=== PATIENT | male | born 1950 | race Caucasian/White ===

== ENCOUNTER → 2016-07-28 | Outpatient (CLI) | payer MEDICAID ==
--- NOTE | 2016-07-28 08:40 | US ---
EXAMINATION TYPE: US abdomen complete DATE OF EXAM: 07/28/2016 8:02 AM COMPARISON: NONE CLINICAL HISTORY: Diarrhea. EXAM MEASUREMENTS: Liver Length: 15.7 cm Gallbladder Wall: 0.1 cm CBD: 0.3 c Spleen: 10.2 cm Right Kidney: 11.1 x 5.9 x 5.6 cm Left Kidney: 11.9 x 4.9 x 5.4 cm ANATOMY: TECHNOLOGIST IMPRESSION: Pancreas: completely Obscured by bowel gas Liver: Within normal limits Gallbladder: Within normal limits Evidence for sonographic Javed's sign: CBD: Within normal limits Spleen: Obscured by overlying bowel gas, no obvious pathology Right Kidney: Cyst inferior pole = 2.0 x 2.2 x 1.5 cm Left Kidney: Cysts, upper pole = 1.8 x 1.9 x 1.2 cm, lower pole = 1.4 x 1.7 x 1.2 cm Upper IVC: Within normal limits Abd Aorta: Within normal limits The liver is homogenous. The intrahepatic portion of the IVC and proximal abdominal aorta are within normal limits. There is no evidence of cholelithiasis. Common bile duct is unremarkable. The visu alized portions of the pancreas are homogenous. The spleen is unremarkable. Kidneys are symmetric a nd free of hydronephrosis. Bilateral simple appearing renal cysts are noted. IMPRESSION: Bilateral simple appearing renal cysts are noted.
== END | disposition home or self-care (01) ==
LOC: RADUSWWP 07:31
PROVIDERS: ATTEND Internal Medicine
DX: N28.1 Cyst of kidney, acquired (principal)
CPT/HCPCS: 76700

== ENCOUNTER 2020-08-07 09:10 | Inpatient (IN) | payer MEDICARE ==
[2020-08-07] MEDS ORDERED: HEPARIN SODIUM,PORCINE 5,000 UNIT/ML 1 ML VIAL IV STA (09:17)
[2020-08-07] MEDS ORDERED: NITROGLYCERIN SL TABS 0.4 MG TAB SUBLINGUAL STA (09:17)
[2020-08-07] MEDS ORDERED: LIDOCAINE 1% INJ 10MG/ML (20 ML MDV) ONE (09:24)
--- NOTE | 2020-08-07 09:29 | ED ---
General Adult HPI - General Chief complaint: Chest Pain Stated complaint: stemi Time Seen by Provider: 08/07/20 09:10 Source: patient, EMS, RN notes reviewed, old records reviewed Mode of arrival: EMS Limitations: no limitations - History of Present Illness Initial comments: This is a 70-year-old male who presents emergency Department complaining of [address] pain or shortness of breath per patient states she was shoveling when this began approximately 30 minutes prior to arrival. Patient states he has had a heart attack in the past has had bypass surgery 10 years ago. Patient states he is no diabetes but he does smoke. Patient states he does have high blood pressure. Patient denies any recent fever chills or cough. Patient denies abdominal pain patient denies nausea vomiting diarrhea. Patient states her nitroglycerin in the ambulance it did not help. Patient states she took a 325 aspirin at home. EKG was transmitted to us in route we called a STEMI overhead prior to the patient's arrival. - Related Data Home Medications Medication Instructions Recorded Confirmed Aspirin [Adult Low Dose Aspirin EC] 81 mg PO 05/27/16 05/27/16 Hydrochlorothiazide 12.5 mg PO 05/27/16 [hydroCHLOROthiazide] Sertraline [Zoloft] 100 mg PO DAILY 05/27/16 05/27/16 Allergies Allergy/AdvReac Type Severity Reaction Status Date / Time rosuvastatin [From Crestor] AdvReac Unknown Verified 05/27/16 04:20 Review of Systems ROS Statement: Those systems with pertinent positive or pertinent negative responses have been documented in the HPI. ROS Other: All systems not noted in ROS Statement are negative. Past Medical History Past Medical History: Hyperlipidemia, Hypertension History of Any Multi-Drug Resistant Organisms: None Reported Past Surgical History: Coronary Bypass/CABG Past Psychological History: No Psychological Hx Reported Smoking Status: Smoker, current status unknown Past Alcohol Use History: None Reported Past Drug Use History: None Reported General Exam - General Exam Comments Initial Comments: GENERAL: Patient is well-developed and well-nourished. Patient is nontoxic and well- hydrated and is in mild distress. ENT: Neck is soft and supple. No significant lymphadenopathy is noted. Oropharynx is clear. Moist mucous membranes. Neck has full range of motion without eliciting any pain. EYES: The sclera were anicteric and conjunctiva were pink and moist. Extraocular movements were intact and pupils were equal round and reactive to light. Eyelids were unremarkable. PULMONARY: Unlabored respirations. Good breath sounds bilaterally. Patient has some expiratory wheezing. CARDIOVASCULAR: There is a regular rate and rhythm without any murmurs gallops or rubs. ABDOMEN: Soft and nontender with normal bowel sounds. SKIN: Skin is clear with no lesions or rashes and otherwise unremarkable. NEUROLOGIC: Patient is alert and oriented x3. Cranial nerves II through XII are grossly intact. Motor and sensory are also intact. Normal speech, volume and content. Symmetrical smile. MUSCULOSKELETAL: Normal extremities with adequate strength and full range of motion. LYMPHATICS: No significant lymphadenopathy is noted PSYCHIATRIC: Normal psychiatric evaluation. Limitations: no limitations Course Vital Signs 08/07/20 09:14 Temperature 97.2 F L Pulse Rate 70 Respiratory 18 Rate Blood Pressure 141/83 O2 Sat by Pulse 95 Oximetry Medical Decision Making - Medical Decision Making EKG shows sinus rhythm at 75 bpm ID interval is 218 QRS is 140 Q-T intervals 442 QTC is 493. Patient's EKG shows ST segment elevation in leads 1-3 and aVF as well as precordial leads V5 and V6. Patient also has significant ST segment depression in the cortical leads V1 and V2 and V3. Patient was given another nitroglycerin the emergency department was also given a bolus of heparin 4000 units. A portable chest x-ray was done and it showed no acute abnormalities. Patient was taken to the [facility]. Disposition Clinical Impression: ST elevation myocardial infarction (STEMI) Disposition: ADMITTED IP TO THIS HOSP Time of Disposition: 09:29
[2020-08-07] MEDS ORDERED: MIDAZOLAM 2 MG/2 ML VIAL IV ONE (09:30)
[2020-08-07] MEDS ORDERED: HEPARIN SODIUM 1,000 UN/ML (10ML VL) ONE (09:33)
[2020-08-07] MEDS ORDERED: LIDOCAINE 1% INJ 10MG/ML (20 ML MDV) SQ ONE (09:33)
--- NOTE | 2020-08-07 09:36 | XR ---
EXAMINATION TYPE: XR chest 1V portable DATE OF EXAM: 08/07/2020 COMPARISON: Chest x-ray dated 05/01/2020 HISTORY: COPD TECHNIQUE: Single frontal view of the chest is obtained. FINDINGS: Patient is rotated and post median sternotomy. There is no focal air space opacity, pleural effusion, or pneumothorax seen. Some minimal strand-like densities are present in left mid lung. The cardiac silhouette size is within normal limits. The osseous structures are intact. IMPRESSION: There may be some atelectasis or scarring. Postop changes.
[2020-08-07] MEDS ORDERED: IV FLUID CONTINUATION 1,000 ML IV ONE (09:40)
[2020-08-07] MEDS ORDERED: TIROFIBAN BOLUS 12.5MG/250 ML BAG IV ONE (09:46)
[2020-08-07] MEDS ORDERED: TIROFIBAN 12.5MG-250ML NS 250 ML IV ONE (09:47)
[2020-08-07 09:51] LABS: Basophils # (A) 0.2 k/uL (0-0.2); Basophils % (A) 2 %; Eosinophils # (A) 0.3 k/uL (0-0.7); Eosinophils % (A) 3 %; HCT 50.2 % (39.0-53.0); HGB 16.5 gm/dL (13.0-17.5); Lymphocytes # (A) 2.3 k/uL (1.0-4.8); Lymphocytes % (A) 22 %; MCH 32.4 pg (25.0-35.0); MCHC 32.9 g/dL (31.0-37.0); MCV 98.6 fL (80.0-100.0); Mean Platelet Volume 7.1; Monocytes # (A) 0.5 k/uL (0-1.0); Monocytes % (A) 5 %; Neutrophils % (A) 68 %; Platelet Count 375 k/uL (150-450); RBC 5.09 m/uL (4.30-5.90); RDW 13.2 % (11.5-15.5); WBC 10.3 k/uL (3.8-10.6)
[2020-08-07] MEDS ORDERED: HYDROmorphone 0.5 MG/0.5 ML SYRINGE IVP ONE (09:54)
[2020-08-07] MEDS ORDERED: NOREPINEPHRINE 4 MG in SODIUM CHLORIDE 0.9% 250 ML IV ONE (09:57)
[2020-08-07] MEDS ORDERED: IOPAMIDOL-370 100ML BTL INJ ONE ×2 (10:00→10:16)
[2020-08-07] MEDS ORDERED: PHENYLEPHRINE 10 MG/ML VIAL IV ONE ×3 (10:03)
[2020-08-07] MEDS ORDERED: METOPROLOL TARTRATE 5 MG/5 ML VIAL IVP ONE ×2 (10:06)
[2020-08-07 10:21] LABS: Calcium 8.8 mg/dL (8.4-10.2); Magnesium 1.5 mg/dL (1.6-2.3); Potassium 3.6 mmol/L (3.5-5.1)
[2020-08-07] MEDS ORDERED: CLOPIDOGREL 75 MG TAB ONE (10:27)
[2020-08-07] MEDS ORDERED: CLOPIDOGREL 75 MG TAB PO ONE (10:29)
[2020-08-07] MEDS ORDERED: ALBUTEROL NEBULIZED 2.5 MG/3 ML INHALATION STA (10:32)
[2020-08-07 10:55] LABS: Glucose,Whole Blood 105 mg/dL (75-99)
[2020-08-07] MEDS: IPRATROPIUM-ALBUTEROL 3 ML NEB INHALATION SCH ×3 (11:22→19:58)
[2020-08-07] MEDS ORDERED: ONDANSETRON 4 MG/2 ML VIAL IVP PRN (11:23)
[2020-08-07] MEDS ORDERED: TIROFIBAN 12.5MG-250ML NS 250 ML IV SCH (11:30)
[2020-08-07] MEDS ORDERED: MAGNESIUM SULFATE-D5W PMX 1 GM in DEXTROSE/WATER 1 100ML.BAG IVPB ONE (12:00)
[2020-08-07] MEDS: NOREPINEPHRINE 4 MG in SODIUM CHLORIDE 0.9% 250 ML IV SCH (12:37)
--- NOTE | 2020-08-07 12:40 | CC ---
CARDIAC CATHETERIZATION REPORT CARDIAC CATHETERIZATION AND PTCA REPORT: DATE OF SERVICE: 08/07/2020. PROCEDURE: 1. Left heart catheterization and coronary angiography. 2. Selective coronary angiography of the vein graft to the diagonal. 3. Left internal mammary artery injection to check the graft to LAD. 4. PTCA and stenting of proximal circumflex, which was a total occlusion with a drug- eluting stent with excellent result. This was an ST-elevation LA with reperfusion accomplished in 27 minutes. PERFORMED BY: Dr. Chrissy Vizcaino. Moderate conscious sedation time was 43 minutes. CLINICAL INFORMATION: Morris Ribera is a 70-year-old gentleman who smokes 2 packs a day, has hypertension, CAD, underwent multiple stenting of LAD in the past and eventually in April,, he had 2-vessel bypass with HARMON to LAD and vein graft to the first diagonal. Prior to that, Dr. Nona Vizcaino performed multiple stents of his LAD, which were totally occluded eventually. He had no disease in the dominant RCA or circumflex at that time. He presented to the hospital with chest pain, inferior apical lateral ST elevation suggestive of LA. He was seen by me in the supervisor laboratory and was evaluated by nurse practitioner, Jovanna Dahl. I proceeded with the immediate coronary angiography. The patient was advised cardiac cath and PCI in view of his acute LA. Risks, benefits, options were explained. PROCEDURE NOTE: Under local anesthesia and strict aseptic precautions, a 6-Kyrgyz sheath was placed in the right femoral artery. I started out with a right Juanis guide catheter and noted that his RCA was patent with about a 30% to 40% narrowing and it was a dominant vessel. I then switched over to a left standard Juanis guide catheter of 6-Kyrgyz caliber and noted circumflex was totally occluded. I performed PCI of circumflex immediately and then did a selective injection of the HARMON graft as well as a vein graft to the diagonal. For the HARMON, I used a Maria E catheter. For the vein graft to the diagonal I used the AR1 catheter. I checked LV pressures with the right catheter but did not do an LV gram. The sheath was sutured and patient was sent to the room in stable condition. CARDIAC CATHETERIZATION FINDINGS: The left ventricular end-diastolic pressure was 22 mmHg without any gradient across the aortic valve. CORONARY ANGIOGRAPHY FINDINGS: RIGHT CORONARY ARTERY: Dominant vessel, has a 30% to 40% narrowing distally bifurcates into PDA and PLV, both of which supply a fair amount of myocardium. LEFT MAIN CORONARY ARTERY: Short patent vessel free of significant disease. Bifurcates into LAD and circumflex. LEFT ANTERIOR DESCENDING CORONARY ARTERY: This vessel is totally occluded with a limited view of a diagonal branch. LEFT POSTERIOR CIRCUMFLEX CORONARY ARTERY: This vessel is totally occluded in the proximal portion, seen as a stump and this is the culprit vessel. LEFT INTERNAL MAMMARY ARTERY GRAFT TO LAD: This was performed after the intervention procedure. The HARMON is widely patent with good flow and the opacified LAD has minor diffuse irregularities, runs all the way to the apex. It also goes back and supplies a diagonal branch as well. SAPHENOUS VEIN GRAFT TO THE DIAGONAL BRANCH: This graft is widely patent at the origin and body and insertion site and the opacified diagonal is small in caliber, has mild diffuse disease but good flow. No significant disease in the vein graft to the diagonal. LEFT VENTRICULOGRAM: Left ventriculogram was not performed. FINAL IMPRESSION: This patient has a right dominant system, 30% to 40% RCA disease. Left main is patent. LAD is occluded. The circumflex is totally occluded in the proximal portion, is the culprit vessel. The vein graft to the diagonal and HARMON to LAD are widely patent. The end-diastolic pressure is elevated without any gradient across aortic valve. The left ventricular end-diastolic pressure was 22 mmHg. RECOMMENDATIONS: I recommended PCI of the circumflex and that was performed expeditiously. PCI PROCEDURE DETAILS: I used a standard left Juanis guide catheter to cannulate the left coronary artery and a run-through wire to cross the lesion and a 3.0 trek balloon to dilate the lesion. Reperfusion was accomplished in 27 minutes. I then deployed a 3.5 caliber 15 mm long Xience stent. This was deployed at 12 atmospheres. Excellent angiographic result was achieved. Patient received a total of 9000 heparin and his ACT was 258. He also received Aggrastat bolus and infusion as per protocol and he also received 600 mg of Plavix orally. Excellent angiographic result without complication was achieved. Results were discussed with the patient as well as his sister and he was sent to the ICU with the sheath sutured in with the understanding it will be pulled at 1 p.m. and FemoStop will be applied. MMODL / IJN: [id number] /
[2020-08-07] MEDS: SODIUM CHLORIDE 0.9% 1,000 ML IV SCH (12:42)
[2020-08-07] MEDS ORDERED: amLODIPine 5 MG TAB PO STA (12:55)
[2020-08-07] MEDS: NITROGLYCERIN SL TABS 0.4 MG TAB SUBLINGUAL SCH ×2 (13:02→13:07)
[2020-08-07] MEDS: POTASSIUM CHLORIDE ER 20 MEQ TAB.ER PO SCH ×2 (13:07→15:35)
--- NOTE | 2020-08-07 13:30 | P.HPIM ---
History of Present Illness H&P Date: 08/07/20 Chief Complaint: chest pain 70-year-old man with a medical history of hypertension, hyperlipidemia, CAD status post CABG presented with chest pain. Patient shoveling snow when he started to experience some chest pain with left arm tingling, and called EMS. He was brought in by ambulance with EKG noting STEMI. He was taken to the [facility] and had left circumflex revascularization with a drug-eluting stent. Otherwise his HARMON to LAD and SVG to RCA were both patent. RCA had 30-40% stenosis. Patient says this chest pain significantly improved, denies fevers, chills, nausea, vomiting, palpitations, abdominal pain, dysuria, dyschezia, numbness/weakness of extremities. Review of Systems All Systems reviewed and pertinent positives and negatives noted in HPI, all other symptoms are negative Past Medical History Past Medical History: Hyperlipidemia, Hypertension History of Any Multi-Drug Resistant Organisms: None Reported Past Surgical History: Coronary Bypass/CABG Date of Last Stent Placement:: 08/07/2020 Past Psychological History: No Psychological Hx Reported Smoking Status: Smoker, current status unknown Past Alcohol Use History: None Reported Past Drug Use History: None Reported - Past Family History Father Family Medical History: Diabetes Mellitus Medications and Allergies Home Medications Medication Instructions Recorded Confirmed Type Acetaminophen [Tylenol] 325 mg PO DAILY 08/07/20 08/07/20 History Aspirin 325 mg PO ONCE PRN 08/07/20 08/07/20 History Cetirizine HCl [Zyrtec] 10 mg PO DAILY 08/07/20 08/07/20 History Fluticasone Propion/Salmeterol 1 puff INHALATION RT-BID 08/07/20 08/07/20 History [Fluticasone-Salmeterol 250-50] Nitroglycerin Sl Tabs [Nitrostat] 0.4 mg SL Q5M PRN 08/07/20 08/07/20 History Allergies Allergy/AdvReac Type Severity Reaction Status Date / Time rosuvastatin [From Crestor] AdvReac Muscle pain Verified 08/07/20 11:09 Physical Exam Osteopathic Statement: *. No significant issues noted on an osteopathic structural exam other than those noted in the History and Physical/Consult. Vitals: Vital Signs Temp Pulse Resp BP Pulse Ox 08/07/20 13:10 99 22 176/101 90 L 08/07/20 13:00 95 14 95 08/07/20 12:50 92 12 94 L 08/07/20 12:40 93 14 96 08/07/20 12:30 87 14 176/101 96 08/07/20 12:20 87 16 108/61 96 08/07/20 12:10 92 18 95 08/07/20 12:00 77 11 L 96 08/07/20 11:50 92 19 95 08/07/20 11:40 84 13 96 08/07/20 11:34 88 08/07/20 11:30 65 9 L 98 08/07/20 11:25 84 08/07/20 11:20 75 11 L 96 08/07/20 11:10 74 18 94 L 08/07/20 11:00 98.3 F 79 22 94 L 08/07/20 10:50 65 20 108/61 95 08/07/20 10:46 21 94 L 08/07/20 09:23 97.2 F L 68 18 111/63 95 08/07/20 09:22 68 18 111/63 95 08/07/20 09:14 97.2 F L 70 18 141/83 95 Intake and Output 08/06/20 08/07/20 08/07/20 22:59 06:59 14:59 Intake Total 1232 Output Total 200 Balance 1032 Intake: IV 1107 Magnesium Sulfate-D5w Pmx 100 1 gm In Dextrose/Water 1 100ml.bag @ 100 mls/hr IVPB ONCE ONE Rx#: [id number] Sodium Chloride 0.9% 1, 300 000 ml @ 75 mls/hr IV . [id number] Rx#:[id number] Intake, IV Titration 0 Amount Norepinephrine 4 mg In 0 Sodium Chloride 0.9% 250 ml @ 0.05 MCG/KG/MIN 15. 986 mls/hr IV .[id number] [facility] Rx#:[id number] Oral 125 Output: Urine 200 Other: # Voids 0 Weight 83.915 kg ABP, PAP, CO, CI - Last 8 Hours Arterial Blood Pressure 172/79 Arterial Blood Pressure 184/77 Arterial Blood Pressure 190/78 Arterial Blood Pressure 194/84 Arterial Blood Pressure 185/74 Arterial Blood Pressure 180/73 Arterial Blood Pressure 191/79 Arterial Blood Pressure 169/69 Arterial Blood Pressure 181/77 Arterial Blood Pressure 177/72 Arterial Blood Pressure 159/69 Arterial Blood Pressure 158/68 Arterial Blood Pressure 154/67 Arterial Blood Pressure 148/67 Gen: awake, alert HEENT: normocephalic, atraumatic, good hearing acuity, moist mucous membranes Resp: good air exchange, breathing comfortably with no accessory muscle use CVS: good distal perfusion x 4, GI: soft, NTTP, ND : no SPT, no CVAT, vasquez catheter is present MSK: no pitting edema, no clubbing Neuro: non-focal, moving all extremities Psych: cooperative, euthymic mood Results CBC & Chem 7: 08/07/20 09:30 08/07/20 09:30 Labs: Abnormal Lab Results - Last 24 Hours (Table) 08/07/20 08/07/20 Range/Units 09:30 10:54 Chloride 109 H (98-107) mmol/L Carbon Dioxide 16 L (22-30) mmol/L Creatinine 1.37 H (0.66-1.25) mg/dL Glucose 151 H (74-99) mg/dL POC Glucose (mg/dL) 105 H (75-99) mg/dL Magnesium 1.5 L (1.6-2.3) mg/dL Thrombosis Risk Factor Assmnt - Choose All That Apply Each Factor Represents 1 point: Obesity (BMI >25) Each Risk Factor Represents 2 Points: Age 61-74 years Thrombosis Risk Factor Assessment Total Risk Factor Score: 3 Thrombosis Risk Factor Assessment Level: Moderate Risk Assessment and Plan Assessment: 1. STEMI 2. CAD status post CABG and PCI 3. Hypertension, essential 4. Hyperlipidemia 5. Obesity next 70-year-old man with medical history of CAD/HTN/HLD presented with chest pain and was found to have STEMI with successful revascularization of the left circumflex. Plan: - monitor on telemetry - cardiology consult - ASA, statin, plavix - Aggrastat gtt per cardiology - metoprolol BID - losartan qHS - duoneb PRN, albuterol PRN, budesonide BID - nitro PRN for chest pain Full Code
--- NOTE | 2020-08-07 13:36 | P.CRDCN ---
History of Present Illness History of present illness: HISTORY OF PRESENTING ILLNESS This is a pleasant 70-year-old male past medical history significant for very artery disease status post bypass grafting in 2009 with previous PCI to the RCA in 2008, chronic nicotine dependence, COPD, hypertension and dyslipidemia. 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 He was outside shoveling snow this morning when he developed discomfort in the left precordial region. The pain is described as a heavy tight sensation. Was as sociated with feeling lightheaded and short of breath. He did take sublingual nitroglycerin at home however they're over 10 years old. There is no radiation to the arm, back, neck or jaw. On EMS arrival initial EKG obtained revealed sinus mechanism with ST elevation in the inferior lateral leads with T-wave inversions anteriorly with frequent PVCs and underlying right bundle branch block. STEMI alert was sent to the emergency department. On arrival to the emergency department his EKG showed ongoing ST elevation inferior laterally. Chest x-ray revealed some atelectasis with no overt heart failure. Laboratory data reviewed, CBC unremarkable, sodium 137, potassium 3.6, creatinine 1.37, m agnesium 1.5 and initial troponin negative. Current daily cardiac medications include aspirin 325 mg daily as needed for pain. REVIEW OF SYSTEMS At the time of my exam: CONSTITUTIONAL: Denies fever or chills. CARDIOVASCULAR: Complains of chest pain. Denies shortness of breath, orthopnea, PND or palpitations. RESPIRATORY: Denies cough. GASTROINTESTINAL: Denies abdominal pain, diarrhea, constipation, nausea or vomiting. MUSCULOSKELETAL: Denies myalgias. NEUROLOGIC: Denies numbness, tingling, headacbe or weakness. ENDOCRINE: Denies fatigue, weight change, polydipsia or polyurina. GENITOURINARY: Denies burning, hematuria or urgency with micturation. HEMATOLOGIC: Denies history of anemia or bleeding. PHYSICAL EXAMINATION Blood pressure 141/83 heart rate 70 afebrile and maintaining oxygen saturation on nasal cannula. CONSTITUTIONAL: No apparent distress. Ayala pale appearance. HEENT: Head is normocephalic. Pupils are equal, round. Sclerae anicteric. Mucous membranes of the mouth are moist. No JVD. No carotid bruit. CHEST EXAMINATION: Expiratory wheezes. No rales or rhonchi. No chest wall tenderness is noted on palpation or with deep breathing. HEART EXAMINATION: Regular rate and rhythm. S1, S2 heard. No murmurs, gallops or rub. Distant heart sounds. ABDOMEN: Soft, nontender. Positive bowel sounds. EXTREMITIES: 2+ peripheral pulses, no lower extremity edema and no calf tende rness. NEUROLOGIC EXAMINATION: Patient is awake, alert and oriented x3. ASSESSMENT Inferior wall STEMI Coronary artery disease s/p 2V bypass grafting 2009 with HARMON-LAD and SVG-diag Hypertension Dyslipidemia Chronic nicotine dependence COPD PLAN Patient to go directly to the cardiac catheterization lab. Discussed in great detail with the patient as well as his sister, Zulma. I have discussed the risks, benefits and alternative therapies for the above-mentioned procedure and for both sedation/analgesia as well as necessary blood product administration, if indicated, as they pertain to this patient. The patient has indicated understanding and acceptance of the risks and procedures discussed. Further recommendations to follow based upon clinical course. Thank you kindly for this consultation. Nurse Practitioner note has been reviewed, I agree with a documented findings and plan of care. Patient was seen and examined. Past Medical History Past Medical History: Hyperlipidemia, Hypertension History of Any Multi-Drug Resistant Organisms: None Reported Past Surgical History: Coronary Bypass/CABG Past Psychological History: No Psychological Hx Reported Smoking Status: Smoker, current status unknown Past Alcohol Use History: None Reported Past Drug Use History: None Reported - Past Family History Father Family Medical History: Diabetes Mellitus Medications and Allergies Home Medications Medication Instructions Recorded Confirmed Type Acetaminophen [Tylenol] 325 mg PO DAILY 08/07/20 08/07/20 History Aspirin 325 mg PO ONCE PRN 08/07/20 08/07/20 History Cetirizine HCl [Zyrtec] 10 mg PO DAILY 08/07/20 08/07/20 History Fluticasone Propion/Salmeterol 1 puff INHALATION RT-BID 08/07/20 08/07/20 History [Fluticasone-Salmeterol 250-50] Nitroglycerin Sl Tabs [Nitrostat] 0.4 mg SL Q5M PRN 08/07/20 08/07/20 History Allergies Allergy/AdvReac Type Severity Reaction Status Date / Time rosuvastatin [From Crestor] AdvReac Muscle pain Verified 08/07/20 11:09 Physical Exam Vitals: Vital Signs Temp Pulse Resp BP Pulse Ox 08/07/20 09:14 97.2 F L 70 18 141/83 95 Intake and Output 08/06/20 08/07/20 08/07/20 22:59 06:59 14:59 Other: Weight 83.915 kg Results 08/07/20 09:30 08/07/20 09:30 Intake and Output 08/06/20 08/07/20 08/07/20 22:59 06:59 14:59 Other: Weight 83.915 kg Patient Weight 08/08/20 06:59 Weight 83.915 kg
--- NOTE | 2020-08-07 13:49 | P.CNPUL ---
History of Present Illness Consult date: 08/07/20 Requesting physician: Feliz Garrido Reason for consult: COPD, other (ICU management) Chief complaint: Chest pain History of present illness: This is a 70-year-old white male, familiar to my service, known history of severe COPD, [id number] smoking history, hypertension, coronary artery disease and previous CABG/2 vessel bypass surgery with HARMON to LAD and saphenous vein graft to first diagonal. History of hypertension, had multiple stents in the past to his LAD. Patient presented to the hospital with chest pain, classic for angina, associated with diaphoresis, left arm discomfort, and this happened while he was shoveling snow. Upon presentation to the hospital, patient was found to have inferior apical lateral ST segment elevation on EKG, suggestive of acute OH/acute ST elevation myocardial infarction. Patient was transferred to the cardiac catheterization lab, underwent cardiac catheterization and stenting of his proximal circumflex which was totally occluded this was done utilizing a drug eluting stent excellent results. Postoperatively, patient was transferred to the ICU, and I was asked to see him on consultation. During my evaluation, patient had some vague chest discomfort, his chest pain has significantly improved. He had no cough no wheezing no shortness of breath no fever no chills no hemoptysis and no nausea no vomiting, no diaphoresis. Troponin on p resentation was less than 0.012. Electrolytes were basically unremarkable except for creatinine of 1.37. CBC was relatively normal. Chest x-ray showed some bibasilar atelectasis or scarring, no acute process was appreciated on the chest x-ray. Review of Systems Constitutional: Negative. HEENT: Negative. Pulmonary: Negative. Cardiac: As noted in HPI. GI: Negative. Genitourinary: Negative. Musculoskeletal: Negative. Endocrine: Negative. Hematologic: Negative. Psychiatric: Negative. Neurologic: Negative. Skin: Negative. Past Medical History Past Medical History: Hyperlipidemia, Hypertension History of Any Multi-Drug Resistant Organisms: None Reported Past Surgical History: Coronary Bypass/CABG Date of Last Stent Placement:: 08/07/2020 Past Psychological History: No Psychological Hx Reported Smoking Status: Smoker, current status unknown Past Alcohol Use History: None Reported Past Drug Use History: None Reported - Past Family History Father Family Medical History: Diabetes Mellitus Medications and Allergies Home Medications Medication Instructions Recorded Confirmed Type Acetaminophen [Tylenol] 325 mg PO DAILY 08/07/20 08/07/20 History Aspirin 325 mg PO ONCE PRN 08/07/20 08/07/20 History Cetirizine HCl [Zyrtec] 10 mg PO DAILY 08/07/20 08/07/20 History Fluticasone Propion/Salmeterol 1 puff INHALATION RT-BID 08/07/20 08/07/20 History [Fluticasone-Salmeterol 250-50] Nitroglycerin Sl Tabs [Nitrostat] 0.4 mg SL Q5M PRN 08/07/20 08/07/20 History Allergies Allergy/AdvReac Type Severity Reaction Status Date / Time rosuvastatin [From Crestor] AdvReac Muscle pain Verified 08/07/20 11:09 Physical Exam Vitals: Vital Signs Temp Pulse Resp BP Pulse Ox 08/07/20 13:10 99 22 176/101 90 L 08/07/20 13:00 95 14 95 08/07/20 12:50 92 12 94 L 08/07/20 12:40 93 14 96 08/07/20 12:30 87 14 176/101 96 08/07/20 12:20 87 16 108/61 96 08/07/20 12:10 92 18 95 08/07/20 12:00 77 11 L 96 08/07/20 11:50 92 19 95 08/07/20 11:40 84 13 96 08/07/20 11:34 88 08/07/20 11:30 65 9 L 98 08/07/20 11:25 84 08/07/20 11:20 75 11 L 96 08/07/20 11:10 74 18 94 L 08/07/20 11:00 98.3 F 79 22 94 L 08/07/20 10:50 65 20 108/61 95 08/07/20 10:46 21 94 L 08/07/20 09:23 97.2 F L 68 18 111/63 95 08/07/20 09:22 68 18 111/63 95 08/07/20 09:14 97.2 F L 70 18 141/83 95 Intake and Output 08/06/20 08/07/20 08/07/20 22:59 06:59 14:59 Intake Total 1232 Output Total 200 Balance 1032 Intake: IV 1107 Magnesium Sulfate-D5w Pmx 100 1 gm In Dextrose/Water 1 100ml.bag @ 100 mls/hr IVPB ONCE ONE Rx#: [id number] Sodium Chloride 0.9% 1, 300 000 ml @ 75 mls/hr IV . [id number] [facility] Rx#:[id number] Intake, IV Titration 0 Amount Norepinephrine 4 mg In 0 Sodium Chloride 0.9% 250 ml @ 0.05 MCG/KG/MIN 15. 986 mls/hr IV .[id number] [facility] Rx#:[id number] Oral 125 Output: Urine 200 Other: # Voids 0 Weight 83.915 kg ABP, PAP, CO, CI - Last 8 Hours Arterial Blood Pressure 172/79 Arterial Blood Pressure 184/77 Arterial Blood Pressure 190/78 Arterial Blood Pressure 194/84 Arterial Blood Pressure 185/74 Arterial Blood Pressure 180/73 Arterial Blood Pressure 191/79 Arterial Blood Pressure 169/69 Arterial Blood Pressure 181/77 Arterial Blood Pressure 177/72 Arterial Blood Pressure 159/69 Arterial Blood Pressure 158/68 Arterial Blood Pressure 154/67 Arterial Blood Pressure 148/67 Physical Exam: Revealed 70-year-old white male in no distress. Head: Atraumatic, normocephalic. HEENT:[Neck is supple.] [No neck masses.] [No thyromegaly.] [No JVD.] PERRLA, EOMI, nonicteric sclerae. Chest: Symmetrical chest expansion, diminished breath sounds at the bases, no crackles or rhonchi or wheezes. No chest wall tenderness. Cardiac Exam: [Normal S1 and S2, no S3 gallop, no murmur.] Abdomen: [Soft, nontender, no megaly, no rebound, no guarding, normal bowel sounds.] Extremities: [No clubbing, no edema, no cyanosis.] Neurological Exam: [No focal neurologic deficit.] Alert and oriented 3. Psychiatric: Normal mood, affect and normal mental status examination. Skin: No rashes. Musculoskeletal no limitation of range of motion, no deformities. Results - Laboratory Findings CBC and BMP: 08/07/20 09:30 08/07/20 09:30 Abnormal lab findings: Abnormal Labs 08/07/20 08/07/20 09:30 10:54 Chloride 109 H Carbon Dioxide 16 L Creatinine 1.37 H Glucose 151 H POC Glucose (mg/dL) 105 H Magnesium 1.5 L - Diagnostic Findings Chest x-ray: image reviewed (As noted in HPI.) CT scan - chest: image reviewed Assessment and Plan Assessment: Impression: Acute ST elevation myocardial infarction Status post stent placement in proximal circumflex. History of underlying coronary artery disease and previous CABG and PCI. Severe COPD, presently asymptomatic. Benign essential hypertension. Tobacco dependence syndrome. Chronic kidney disease stage III, baseline creatinine in 2016 was1.43, and today it is 1.37, GFR around 50 Recommendation: Continue present supportive care measures. Continue to monitor in the ICU. Continue Plavix. Continue aspirin. Continue beta blockers. Continue statins. Continue bronchodilators. Continue Aggrastat. Nitroglycerin when necessary. We'll continue to follow. Time with Patient: Greater than 30
[2020-08-07] MEDS: LABETALOL 5 MG/ML VIAL MDV IVP SCH ×3 (14:12→21:00)
[2020-08-07] MEDS ORDERED: ATROPINE SULFATE 0.1 MG/ML 10ML SYRINGE ONE (14:51)
[2020-08-07] MEDS: METOPROLOL TARTRATE 12.5 MG TAB PO SCH ×2 (17:27→21:00)
[2020-08-07] MEDS ORDERED: HYDROcodone/APAP 5-325MG 1 EACH TAB PO PRN (17:32)
[2020-08-07] MEDS ORDERED: MORPHINE SULFATE 2 MG/ML SYRINGE IVP STA (18:38)
[2020-08-07] MEDS: BUDESONIDE 0.5 MG/2 ML NEBU INHALATION SCH (19:58)
[2020-08-07] MEDS: LOSARTAN 25 MG TAB PO SCH (20:59)
[2020-08-07] MEDS ORDERED: LOSARTAN 25 MG TAB PO SCH (21:00)
[2020-08-07] MEDS: ATORVASTATIN 80 MG TAB PO SCH (21:00)
[2020-08-08] MEDS: SODIUM CHLORIDE 0.9% 1,000 ML IV SCH ×2 (00:05→14:06)
[2020-08-08] MEDS: IPRATROPIUM-ALBUTEROL 3 ML NEB INHALATION SCH ×6 (00:08→20:49)
[2020-08-08] MEDS: NOREPINEPHRINE 4 MG in SODIUM CHLORIDE 0.9% 250 ML IV SCH ×2 (00:29→17:53)
[2020-08-08] MEDS: LABETALOL 5 MG/ML VIAL MDV IVP SCH ×6 (03:17→21:37)
[2020-08-08 05:33] LABS: Basophils # (A) 0.1 k/uL (0-0.2); Basophils % (A) 1 %; Eosinophils # (A) 0.1 k/uL (0-0.7); Eosinophils % (A) 1 %; HCT 47.9 % (39.0-53.0); Lymphocytes # (A) 1.6 k/uL (1.0-4.8); Lymphocytes % (A) 15 %; MCH 33.3 pg (25.0-35.0); MCHC 33.4 g/dL (31.0-37.0); MCV 99.8 fL (80.0-100.0); Monocytes # (A) 0.6 k/uL (0-1.0); Monocytes % (A) 6 %; Neutrophils # (A) 8.1 k/uL (1.3-7.7); Neutrophils % (A) 76 %; Platelet Count 316 k/uL (150-450); RDW 13.2 % (11.5-15.5); WBC 10.7 k/uL (3.8-10.6)
[2020-08-08 05:51] LABS: Albumin 3.5 g/dL (3.5-5.0); Calcium 8.7 mg/dL (8.4-10.2); Total Bilirubin 0.7 mg/dL (0.2-1.3); Total Protein 6.5 g/dL (6.3-8.2)
[2020-08-08] MEDS ORDERED: SODIUM POLYSTYRENE SULFONATE 15 GM/60 ML BOTTLE PO STA ×2 (07:04→12:41)
[2020-08-08] MEDS: BUDESONIDE 0.5 MG/2 ML NEBU INHALATION SCH ×2 (07:40→20:49)
[2020-08-08] MEDS: METOPROLOL TARTRATE 12.5 MG TAB PO SCH ×3 (07:56→21:39)
[2020-08-08] MEDS: ASPIRIN 81 MG PO SCH (07:56)
[2020-08-08] MEDS: CLOPIDOGREL 75 MG TAB PO SCH (07:57)
[2020-08-08] MEDS: NICOTINE 14MG/24HR PATCH TRANSDERM SCH (08:31)
--- NOTE | 2020-08-08 08:38 | PN ---
PROGRESS NOTE Mr. Ribera is a 70-year-old gentleman who presented with acute inferior OH underwent stenting of a totally occluded circumflex yesterday. His troponin went up to 370, came back down to 250. EKG revealed a sinus mechanism with inferior OH completed. His potassium is 6.0. He is resting comfortably, has no chest pain. Right groin is slightly tender. There is a very small hematoma. Vital signs are stable. S1, S2 heard normally. Blood pressure control is good. There is JVD of 1 cm. No carotid bruit. S1, S2 heard normally, short systolic murmur noted. Lungs reveal diminished air entry. Abdomen is soft. Right groin has a small area of tenderness, very small hematoma. No bruit. Distal pulses palpable but decreased. I am recommending that we give him Kayexalate 30 grams for elevated potassium of 6.0 and repeat potassium at 2 p.m. Check echocardiogram. Increase activity and hopefully move him to telemetry this afternoon. MMODL / IJN: [id number] /
--- NOTE | 2020-08-08 11:39 | P.PN ---
Subjective Progress Note Date: 08/08/20 No new complaints today, working well with PT. Had some pain at the femoral cath site yesterday, which is resolved. Objective - Vital Signs Vital signs: Vital Signs Temp 99.4 F 08/08/20 08:00 Pulse 74 08/08/20 11:27 Resp 28 H 08/08/20 09:00 BP 140/71 08/08/20 09:00 Pulse Ox 93 L 08/08/20 09:00 Intake & Output 08/07/20 08/08/20 08/08/20 18:59 06:59 18:59 Intake Total 1607 900 225 Output Total 560 625 200 Balance 1047 275 25 Weight 83.915 kg 100.9 kg Intake: IV 1482 900 225 Magnesium Sulfate-D5w Pmx 100 1 gm In Dextrose/Water 1 100ml.bag @ 100 mls/hr IVPB ONCE ONE Rx#: [id number] Sodium Chloride 0.9% 1, 675 900 225 000 ml @ 75 mls/hr IV . [id number] [facility] Rx#:[id number] Intake, IV Titration 0 Amount Norepinephrine 4 mg In 0 Sodium Chloride 0.9% 250 ml @ 0.05 MCG/KG/MIN 15. 986 mls/hr IV .[id number] [facility] Rx#:[id number] Oral 125 Output: Urine 560 625 200 Other: Voiding Method Urinal Urinal Urinal # Voids 0 ABP, PAP, CO, CI - Last Documented Arterial Blood Pressure 137/63 - Exam Gen: awake, alert HEENT: normocephalic, atraumatic, good hearing acuity, moist mucous membranes Resp: good air exchange, breathing comfortably with no accessory muscle use CVS: good distal perfusion x 4, GI: soft, NTTP, ND : no SPT, no CVAT, vasquez catheter is present MSK: no pitting edema, no clubbing Neuro: non-focal, moving all extremities Psych: cooperative, euthymic mood - Labs CBC & Chem 7: 08/08/20 05:23 08/08/20 05:23 Labs: Abnormal Lab Results - Last 24 Hours (Table) 08/07/20 08/08/20 08/08/20 Range/Units 17:50 05:23 05:23 WBC 10.7 H (3.8-10.6) k/uL Neutrophils # 8.1 H (1.3-7.7) k/uL Sodium 136 L (137-145) mmol/L Potassium 6.0 H (3.5-5.1) mmol/L Chloride 108 H (98-107) mmol/L BUN 21 H (9-20) mg/dL Creatinine 1.53 H (0.66-1.25) mg/dL Glucose 111 H (74-99) mg/dL AST 742 H (17-59) U/L ALT 93 H (4-49) U/L Troponin I 371.000 H* (0.000-0.034) ng/mL 08/08/20 Range/Units 05:23 WBC (3.8-10.6) k/uL Neutrophils # (1.3-7.7) k/uL Sodium (137-145) mmol/L Potassium (3.5-5.1) mmol/L Chloride (98-107) mmol/L BUN (9-20) mg/dL Creatinine (0.66-1.25) mg/dL Glucose (74-99) mg/dL AST (17-59) U/L ALT (4-49) U/L Troponin I 253.000 H* (0.000-0.034) ng/mL Assessment and Plan Assessment: 1. STEMI 2. CAD status post CABG and PCI 3. Hypertension, essential 4. Hyperlipidemia 5. Obesity next 70-year-old man with medical history of CAD/HTN/HLD presented with chest pain and was found to have STEMI with successful revascularization of the left circumflex. Plan: - monitor on telemetry - cardiology consult - ASA, statin, plavix - Aggrastat gtt per cardiology - metoprolol BID - losartan qHS - duoneb PRN, albuterol PRN, budesonide BID - nitro PRN for chest pain Full Code
--- NOTE | 2020-08-08 12:08 | P.PN ---
Subjective Progress Note Date: 08/08/20 Principal diagnosis: Acute ST elevation myocardial infarction This is a 70-year-old white male, familiar to my service, known history of severe COPD, [id number] smoking history, hypertension, coronary artery disease and previous CABG/2 vessel bypass surgery with HARMON to LAD and saphenous vein graft to first diagonal. History of hypertension, had multiple stents in the past to his LAD. Patient presented to the hospital with chest pain, classic for angina, associated with diaphoresis, left arm discomfort, and this happened while he was shoveling snow. Upon presentation to the hospital, patient was found to have inferior apical lateral ST segment elevation on EKG, suggestive of acute CA/acute ST elevation myocardial infarction. Patient was transferred to the cardiac catheterization lab, underwent cardiac catheterization and stenting of his proximal circumflex which was totally occluded this was done utilizing a drug eluting stent excellent results. Postoperatively, patient was transferred to the ICU, and I was asked to see him on consultation. During my evaluation, patient had some vague chest discomfort, his chest pain has significantly improved. He had no cough no wheezing no shortness of breath no fever no chills no hemoptysis and no nausea no vomiting, no diaphoresis. Troponin on presentation was less than 0.012. Electrolytes were basically unremarkable except for creatinine of 1.37. CBC was relatively normal. Chest x-ray showed some bibasilar atelectasis or scarring, no acute process was appreciated on the chest x-ray. Reevaluated today on 08/08/2020, patient remains in the ICU today, seems to be doing fairly well, no major events overnight, he is on 2 L nasal cannula and his O2 saturations 92%. Denies any chest pain, denies any shortness of breath, patient is status post stenting of his circumflex. His renal status is a bit worse, patient appeared to develop acute on chronic kidney injury most likely related to the contrast media that he received for his cardiac catheterization and stents placement. Potassium is high today at 6.0, and he was already received Kayexalate by cardiology. Repeat potassium will be done in 4 hours, and we'll address accordingly. Considering his elevated potassium will continue to monitor the patient in the ICU at least for the next 24 hours. His BUN is up to 21 and his creatinine is up to 1.53. Troponin is lower today at 253. Objective - Vital Signs Vital signs: Vital Signs Temp 99.4 F 08/08/20 08:00 Pulse 74 08/08/20 11:27 Resp 25 H 08/08/20 11:00 BP 129/63 08/08/20 11:00 Pulse Ox 91 L 08/08/20 11:00 Intake & Output 08/07/20 08/08/20 08/08/20 18:59 06:59 18:59 Intake Total 1607 900 375 Output Total 560 625 200 Balance 1047 275 175 Weight 83.915 kg 100.9 kg Intake: IV 1482 900 375 Magnesium Sulfate-D5w Pmx 100 1 gm In Dextrose/Water 1 100ml.bag @ 100 mls/hr IVPB ONCE ONE Rx#: [id number] Sodium Chloride 0.9% 1, 675 900 375 000 ml @ 75 mls/hr IV . [id number] [facility] Rx#:[id number] Intake, IV Titration 0 Amount Norepinephrine 4 mg In 0 Sodium Chloride 0.9% 250 ml @ 0.05 MCG/KG/MIN 15. 986 mls/hr IV .[id number] [facility] Rx#:[id number] Oral 125 Output: Urine 560 625 200 Other: Voiding Method Urinal Urinal Urinal # Voids 0 ABP, PAP, CO, CI - Last Documented Arterial Blood Pressure 137/63 - Exam Physical Exam: Revealed 70-year-old white male in no distress. On 2 L nasal cannula, O2 saturations 92%. Patient is hemodynamically stable. Head: Atraumatic, normocephalic. HEENT:[Neck is supple.] [No neck masses.] [No thyromegaly.] [No JVD.] PERRLA, EOMI, nonicteric sclerae. Chest: Symmetrical chest expansion, diminished breath sounds at the bases, no crackles or rhonchi or wheezes. No chest wall tenderness. Cardiac Exam: [Normal S1 and S2, no S3 gallop, no murmur.] Abdomen: [Soft, nontender, no megaly, no rebound, no guarding, normal bowel sounds.] Extremities: [No clubbing, no edema, no cyanosis.] Neurological Exam: [No focal neurologic deficit.] Alert and oriented 3. Psychiatric: Normal mood, affect and normal mental status examination. Skin: No rashes. Musculoskeletal no limitation of range of motion, no deformities. - Labs CBC & Chem 7: 08/08/20 05:23 08/08/20 05:23 Labs: Abnormal Lab Results - Last 24 Hours (Table) 08/07/20 08/08/20 08/08/20 Range/Units 17:50 05:23 05:23 WBC 10.7 H (3.8-10.6) k/uL Neutrophils # 8.1 H (1.3-7.7) k/uL Sodium 136 L (137-145) mmol/L Potassium 6.0 H (3.5-5.1) mmol/L Chloride 108 H (98-107) mmol/L BUN 21 H (9-20) mg/dL Creatinine 1.53 H (0.66-1.25) mg/dL Glucose 111 H (74-99) mg/dL AST 742 H (17-59) U/L ALT 93 H (4-49) U/L Troponin I 371.000 H* (0.000-0.034) ng/mL 08/08/20 Range/Units 05:23 WBC (3.8-10.6) k/uL Neutrophils # (1.3-7.7) k/uL Sodium (137-145) mmol/L Potassium (3.5-5.1) mmol/L Chloride (98-107) mmol/L BUN (9-20) mg/dL Creatinine (0.66-1.25) mg/dL Glucose (74-99) mg/dL AST (17-59) U/L ALT (4-49) U/L Troponin I 253.000 H* (0.000-0.034) ng/mL Assessment and Plan Assessment: Impression: Acute ST elevation myocardial infarction Status post stent placement in proximal circumflex. History of underlying coronary artery disease and previous CABG and PCI. Severe COPD, presently asymptomatic. Benign essential hypertension. Tobacco dependence syndrome. Chronic kidney disease stage III, baseline creatinine in 2016 was1.43, and today it is 1.37, GFR around 50 Acute on chronic kidney injury most likely secondary to contrast media. With acute hyperkalemia. Recommendation: Agree with Kayexalate. Repeat serum potassium in 4 hours. Continue present supportive care measures. Continue to monitor in the ICU. Continue Plavix. Continue aspirin. Continue beta blockers. Continue statins. Continue bronchodilators. Nitroglycerin when necessary. We'll continue to follow. While in the ICU Time with Patient: Less than 30
--- NOTE | 2020-08-08 18:40 | ECHOF ---
Referral Reason:rule out tamponade MEASUREMENTS -------- HEIGHT: 172.7 cm WEIGHT: 83.9 kg BP: RVIDd: 2.8 cm (< 3.3) IVSd: 1.5 cm (0.6 - 1.1) LVIDd: 4.4 cm (3.9 - 5.3) LVPWd: 1.4 cm (0.6 - 1.1) IVSs: 1.8 cm LVIDs: 4.3 cm LVPWs: 1.7 cm LA Diam: 4.3 cm (2.7 - 3.8) Ao Diam: 3.0 cm (2.0 - 3.7) AV Cusp: 1.9 cm (1.5 - 2.6) MV EXCURSION: 23.037 mm (> 18.000) MV EF SLOPE: 190 mm/s (70 - 150) EPSS: 0.6 cm MV E Thom: 0.63 m/s MV DecT: 178 ms MV A Thom: 0.56 m/s MV E/A Ratio: 1.12 RAP: 5.00 mmHg RVSP: 11.07 mmHg FINDINGS -------- Sinus rhythm. This was a techncally difficult study with suboptimal views, , Definity utilized for enhancement of i mages. The left ventricular size is normal. There is moderate concentric left ventricular hypertrophy. O verall left ventricular systolic function is moderately impaired with, an EF between 35 - 40 %. Bas al posterior LV wall motion is hypokinetic. Basal inferior LV wall motion is hypokinetic. Mid p osterior LV wall motion is hypokinetic. Mid inferior LV wall motion is hypokinetic. The right ventricle is normal in size. The left atrium is mildly dilated. The right atrial size is normal. Aortic valve is trileaflet and is mildly thickened. The mitral valve was not well visualized. Mild mitral regurgitation is present. Mild tricuspid regurgitation present. Right ventricular systolic pressure is normal at < 35 mmHg. The pulmonic valve was not well visualized. The aortic root size is normal. There is no pericardial effusion. CONCLUSIONS -------- 1. This was a techncally difficult study with suboptimal views, , Definity utilized for enhancement o f images. 2. There is moderate concentric left ventricular hypertrophy. 3. Overall left ventricular systolic function is moderately impaired with, an EF between 35 - 40 %. 4. Basal posterior LV wall motion is hypokinetic. 5. Basal inferior LV wall motion is hypokinetic. 6. Mid posterior LV wall motion is hypokinetic. 7. Mid inferior LV wall motion is hypokinetic. 8. The left atrium is mildly dilated. 9. Aortic valve is trileaflet and is mildly thickened. 10. Mild mitral regurgitation is present. 11. Mild tricuspid regurgitation present. 12. There is no pericardial effusion. NON EMERGENCY SERVICES AMBULANCE DRIVER: Mayra Duncan RDCS
[2020-08-08] MEDS: LOSARTAN 25 MG TAB PO SCH (21:39)
[2020-08-08] MEDS: ATORVASTATIN 80 MG TAB PO SCH (21:39)
[2020-08-09] MEDS: IPRATROPIUM-ALBUTEROL 3 ML NEB INHALATION SCH ×4 (01:35→11:18)
[2020-08-09] MEDS: LABETALOL 5 MG/ML VIAL MDV IVP SCH ×4 (02:17→13:38)
[2020-08-09 04:06] LABS: HCT 42.4 % (39.0-53.0); HGB 14.3 gm/dL (13.0-17.5); MCH 33.3 pg (25.0-35.0); MCHC 33.8 g/dL (31.0-37.0); MCV 98.5 fL (80.0-100.0); Mean Platelet Volume 7.3; Platelet Count 276 k/uL (150-450); RDW 13.2 % (11.5-15.5); WBC 10.3 k/uL (3.8-10.6)
[2020-08-09 04:14] LABS: Calcium 8.3 mg/dL (8.4-10.2); Potassium 4.7 mmol/L (3.5-5.1)
[2020-08-09] MEDS: BUDESONIDE 0.5 MG/2 ML NEBU INHALATION SCH (07:26)
[2020-08-09] MEDS ORDERED: SODIUM CHLORIDE 0.9% 1,000 ML IV SCH (07:30)
--- NOTE | 2020-08-09 08:28 | XR ---
EXAMINATION TYPE: XR chest 1V portable DATE OF EXAM: 08/09/2020 CLINICAL HISTORY: Difficulty breathing and COPD progress study. TECHNIQUE: Single AP portable upright view of the chest is obtained. COMPARISON: Chest x-ray from 2 days earlier and older studies. FINDINGS: There is mild chronic parenchymal changes bilaterally without suspicious new focal air spa ce opacity, pleural effusion, or pneumothorax seen. Mild linear scarring or atelectasis lateral left mid lung redemonstrated. Overlying sternal wires and mediastinal clips are redemonstrated. The cardi ac silhouette size is stable and upper limits of normal. The osseous structures remain intact. IMPRESSION: Chronic parenchymal changes with persistent lateral left mid lung linear scarring and/or atelectasis. No new infiltrate.
[2020-08-09] MEDS ORDERED: FUROSEMIDE 10 MG/ML 2 ML VIAL IV ONE (08:29)
[2020-08-09] MEDS ORDERED: methylPREDNISolone SOD SUCCI 40 MG/ML 1 ML VIAL IV SCH (08:30)
[2020-08-09] MEDS: NOREPINEPHRINE 4 MG in SODIUM CHLORIDE 0.9% 250 ML IV SCH (08:56)
[2020-08-09] MEDS ORDERED: METOPROLOL TARTRATE 25 MG TAB PO SCH (09:00)
[2020-08-09] MEDS ORDERED: LOSARTAN 25 MG TAB PO SCH (09:00)
[2020-08-09] MEDS: NICOTINE 14MG/24HR PATCH TRANSDERM SCH (09:00)
[2020-08-09] MEDS: CLOPIDOGREL 75 MG TAB PO SCH (09:01)
[2020-08-09] MEDS: ASPIRIN 81 MG PO SCH (09:01)
--- NOTE | 2020-08-09 10:14 | PN ---
PROGRESS NOTE This is a 70-year-old gentleman who presented with acute inferior GA underwent stenting of a totally occluded circumflex coronary artery. He is doing well post procedure. His creatinine has gone up somewhat. He has underlying chronic kidney disease. He is resting comfortably without any chest pain, shortness of breath, or palpitations. Vitals are stable. Heart rate is about 86 beats per minute. Blood pressure is about 120/70. There is JVD of 1 cm. No carotid bruit. S1, S2 heard normally, short systolic murmur noted. Lungs reveal bilateral scattered rhonchi. Abdomen is soft, nontender. Lower extremities reveal diminished pulses. Right groin is clean and dry. His laboratory data revealed that potassium is 4.7. Yesterday I had to give him some Kayexalate. I am carefully going to increase the losartan to 25 mg daily and increase the beta jensen Lopressor to 25 mg b.i.d. and hydrate him cautiously. He may benefit from bronchodilators and/or steroids. I will request Dr. Estrada to evaluate him in this regard. We will increase activity and move him to telemetry. Echocardiogram revealed ejection fraction in the 35% to 40% range with evidence inferobasal lateral hypokinesia. There is no significant mitral regurgitation noted. We will continue gradual increase in activity and move him to telemetry. SALINAS / FABIOLAN: [id number] /
--- NOTE | 2020-08-09 11:01 | P.PN ---
Subjective Progress Note Date: 08/09/20 No new complaints. No chest pain, femoral site pain. No palpitations. Echo with low EF and WMA as expected. Objective - Vital Signs Vital signs: Vital Signs Temp 99.5 F 08/09/20 08:00 Pulse 80 08/09/20 09:00 Resp 16 08/09/20 09:00 BP 118/63 08/09/20 09:00 Pulse Ox 92 L 08/09/20 09:00 Intake & Output 08/08/20 08/09/20 08/09/20 18:59 06:59 18:59 Intake Total 450 115 Output Total 600 600 0 Balance -150 -600 115 Weight 99.155 kg Intake: IV 450 115 Sodium Chloride 0.9% 1, 40 000 ml @ 20 mls/hr IV . Q24H [facility] Rx#:[id number] Sodium Chloride 0.9% 1, 450 75 000 ml @ 75 mls/hr IV . [id number] [facility] Rx#:[id number] Output: Urine 600 600 0 Other: Voiding Method Urinal Urinal ABP, PAP, CO, CI - Last Documented Arterial Blood Pressure 137/63 - Exam Gen: awake, alert HEENT: normocephalic, atraumatic, good hearing acuity, moist mucous membranes Resp: good air exchange, breathing comfortably with no accessory muscle use CVS: good distal perfusion x 4, GI: soft, NTTP, ND : no SPT, no CVAT, vasquez catheter not present MSK: no pitting edema, no clubbing Neuro: non-focal, moving all extremities Psych: cooperative, euthymic mood - Labs CBC & Chem 7: 08/09/20 03:52 08/09/20 03:52 Labs: Abnormal Lab Results - Last 24 Hours (Table) 08/08/20 08/09/20 Range/Units 11:34 03:52 Sodium 135 L (137-145) mmol/L Potassium 5.6 H (3.5-5.1) mmol/L BUN 27 H (9-20) mg/dL Creatinine 1.69 H (0.66-1.25) mg/dL Calcium 8.3 L (8.4-10.2) mg/dL Assessment and Plan Assessment: 1. STEMI 2. CAD status post CABG and PCI 3. Hypertension, essential 4. Hyperlipidemia 5. Obesity next 70-year-old man with medical history of CAD/HTN/HLD presented with chest pain and was found to have STEMI with successful revascularization of the left circumflex. Plan: - monitor on telemetry - cardiology consult - ASA, statin, plavix - Aggrastat gtt per cardiology, d/c'd - metoprolol BID - losartan qHS - duoneb PRN, albuterol PRN, budesonide BID - nitro PRN for chest pain Full Code
[2020-08-09 13:15] LABS: Glucose,Whole Blood 137 mg/dL (75-99)
--- NOTE | 2020-08-09 13:42 | CT ---
EXAMINATION TYPE: CT brain wo con for TPA DATE OF EXAM: 08/09/2020 COMPARISON: None HISTORY: Unresponsive, altered and weakness. CT DLP: 1197.[address] of the brain was performed. There is artifact noted of decreased attenuation posteriorl y. Findings suggest possible hyperdense left MCA. Correlate clinically. The ventricles, basal cisterns and sulci overlying the cerebral convexities demonstrate mild enlargem ent. There is no evidence for intracranial hemorrhage or sulcal effacement. There is decreased attenuation about the periventricular white matter and deep white matter of both c erebral hemispheres, compatible with chronic small vessel ischemia. Differential diagnosis does inclu de demyelination. No mass effects are seen.No midline shift. Osseous calvarium is intact. If symptoms persist consider MRI. IMPRESSION: 1. Findings suggest possible hyperdense left MCA. Correlate clinically. No definite sulcal effacement at this time. Artifact noted as discussed above.
[2020-08-09 13:52] VITALS: BP 145/67; PULSE 81; RESP 18; TEMP 98.2
[2020-08-09] MEDS ORDERED: Alteplase PER PHARMACY Stroke 1 EACH MISC MISCELLANE PRN (14:05)
[2020-08-09] MEDS ORDERED: ALTEPLASE IV STA (14:07)
[2020-08-09] MEDS ORDERED: ALTEPLASE BOLUS 9 MG in EMPTY SYRINGE 1 SYR IV STA (14:07)
--- NOTE | 2020-08-09 14:15 | CT ---
EXAMINATION TYPE: CODE STROKE: CTA head neck DATE OF EXAM: 08/09/2020 HISTORY: Unresponsive. Altered mental status. Code stroke. COMPARISON: CT brain earlier today. CT DLP: 656.9 mGycm. Automated Exposure Control for Dose Reduction was Utilized. TECHNIQUE: CTA scan of the head and neck is performed with IV Contrast, patient injected with 65 mL of Isovue 370, axial images are obtained, coronal and sagittal reformatted images are reviewed. 3D re constructed images are created on an independent workstation and reviewed. FINDINGS: Carotid/Vascular Structures: Moderate noncalcified plaque in the 3 great vessels from the aortic arch . No significant plaque or stenosis in the common carotid arteries bilaterally. Right side shows mi ld to moderate noncalcified plaque at origin of external carotid artery. No significant plaque or thiago nosis in the proximal right internal carotid artery. No significant plaque or stenosis in remainder o f right internal carotid artery. Mild to moderate noncalcified plaque at the aortic arch extends into internal carotid artery on the left where there is more moderate to severe eccentric plaque. There i s some tortuous course. There is no greater than 50% stenosis. There is tortuous course remainder of left internal carotid artery with mild calcified plaque in supraclinoid segment. No significant steno sis. There is dominant left vertebral artery. Vertebral arteries are patent to basilar junction. There is hypoplastic right posterior commuting artery arteries. There is left posterior cerebral artery origin ating from the distal left internal carotid artery. No focal aneurysm. Anterior circulation shows pat ent middle cerebral arteries bilaterally. There is short segment filling of the left anterior cerebra l artery with an abrupt termination corresponding to the hyperdense area on noncontrast CT, small silvio ling vessel could reflect patent small caliber right anterior cerebral artery. There is likely clot e xtension on the left A2 segment into the anterior communicating artery. Other: There is partial visualization of post-CABG changes. Straightening of spine with mild to moder ate multilevel spurring and disc space narrowing. IMPRESSION: 1. Significant occlusive thrombosis craig of [place] involving the left anterior cerebral artery and likely anterior communicating artery directed extension. Poor flow in the anterior cerebral arteries distal to this level noted. No prior CTA or MRA for direct comparison. Perfectserve used for communication to ordering physician at time of dictation.
[2020-08-09 14:27] LABS: Basophils # (A) 0.1 k/uL (0-0.2); Basophils % (A) 1 %; Eosinophils # (A) 0.1 k/uL (0-0.7); Eosinophils % (A) 1 %; HCT 46.1 % (39.0-53.0); HGB 15.6 gm/dL (13.0-17.5); Lymphocytes # (A) 0.6 k/uL (1.0-4.8); Lymphocytes % (A) 6 %; MCH 33.3 pg (25.0-35.0); MCHC 33.8 g/dL (31.0-37.0); MCV 98.4 fL (80.0-100.0); Monocytes # (A) 0.2 k/uL (0-1.0); Monocytes % (A) 2 %; Neutrophils # (A) 8.6 k/uL (1.3-7.7); Neutrophils % (A) 90 %; Platelet Count 293 k/uL (150-450); RBC 4.68 m/uL (4.30-5.90); WBC 9.5 k/uL (3.8-10.6)
[2020-08-09] MEDS ORDERED: propofoL 50 ML IV ONE (14:31)
[2020-08-09] MEDS ORDERED: NOREPINEPHRIN 4 MG-0.9% NS PMX 0 MG/0 ML ML IV ONE (14:35)
[2020-08-09 14:36] LABS: Partial Thromboplastin Time 26.2 sec (22.0-30.0); Prothrombin Time 11.1 sec (9.0-12.0)
[2020-08-09 14:39] LABS: Albumin 3.7 g/dL (3.5-5.0); Calcium 8.5 mg/dL (8.4-10.2); Potassium 5.1 mmol/L (3.5-5.1); Total Bilirubin 0.8 mg/dL (0.2-1.3); Total Protein 6.8 g/dL (6.3-8.2)
[2020-08-09] MEDS ORDERED: SODIUM CHLORIDE 0.9% 50 ML MINI-BAG IV ONE (15:05)
--- NOTE | 2020-08-09 15:05 | P.EN ---
The patient bedside for stroke alert. Last known normal within 20 minutes of stroke alert. On arrival, patient is afebrile, 145/67, nonverbal, able to track, flaccid paralysis of left side worse than right side, minimal handgrip strength 1+ out of 5 on right side, minimal handgrip strength 1-out of 5 on left side. Patient is unable to respond to me verbally, but does appear to track well. Follows commands. Does not appear to be protecting his airway secretions. Labs: Patient does not have INR or PTT this admission. Platelets are greater than 200. Imaging: Stat CT of the head demonstrates left hypodense area in the MCA distribution, but no hemorrhage. CTA demonstrated left anterior cerebral artery occlusion. Plan: Case discussed with neuro interventionalist, who recommended TPA and transfer [facility]. Patient does not appear to be protecting his airway, therefore anesthesia was called to have patient emergency intubated. EMS was called for emergent transfer to [facility]. I spoke with patient's sister, JOAN, who gave me consent to transfer patient. After intubation, patient was set on ventilator before meals, PEEP of 5, tidal volume 500, FiO2 40%. Patient was started on propofol drip for sedation. I spent 45 minutes of critical care time in the care of this patient.
--- NOTE | 2020-08-09 15:11 | P.DS ---
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 STEMI in background of CAD status post CABG and PCI 2. Acute Thromboembolic Stroke in the Left Anterior Cerebral Artery 3. Hypertension, essential 4. Hyperlipidemia 5. Obesity next 70-year-old man with medical history of CAD/HTN/HLD presented with chest pain and was found to have STEMI with successful revascularization of the left circumflex. Patient did well 48 hours after the initial event, and was successfully stepped down to the floor. And was on ASA/Statin/Plavix. No AFib burden on telemetry. He then had an acute event while on the floor leading to flaccid paralysis and non-verbal status, though he tracked well, prompting stroke alert, which identified an occluded vessel in the left anterior cerebral artery on CTA, with possible MCA distribution density on CTH. Pt was evaluated via [id number], who recommended transfer to [facility] for further care. Please see event note on same day for further details. Pt transferred to [facility] after intubation for airway protection. Patient Condition at Discharge: Critical Plan - Discharge Summary Discharge Rx Participant: No New Discharge Prescriptions: No Action Nitroglycerin Sl Tabs [Nitrostat] 0.4 mg SL Q5M PRN PRN Reason: Chest Pain Fluticasone Propion/Salmeterol [Fluticasone-Salmeterol 250-50] 1 puff INHALATION RT-BID Cetirizine HCl [Zyrtec] 10 mg PO DAILY RX: Aspirin 325 mg PO ONCE PRN PRN Reason: Chest Pain Acetaminophen [Tylenol] 325 mg PO DAILY Discharge Medication List Acetaminophen [Tylenol] 325 mg PO DAILY 08/07/20 [History] Cetirizine HCl [Zyrtec] 10 mg PO DAILY 08/07/20 [History] Fluticasone Propion/Salmeterol [Fluticasone-Salmeterol 250-50] 1 puff INHALATION RT-BID 08/07/20 [History] Nitroglycerin Sl Tabs [Nitrostat] 0.4 mg SL Q5M PRN 08/07/20 [History] RX: Aspirin 325 mg PO ONCE PRN 08/07/20 [History] Follow up Appointment(s)/Referral(s): Serg Vizcaino MD [STAFF PHYSICIAN] - 08/15/20 1:30 pm (With Tasneem KELLER) Alise Hawkins MD [STAFF PHYSICIAN] - 1-2 Days
--- NOTE | 2020-08-09 15:25 | XR ---
EXAMINATION TYPE: XR chest 1V portable DATE OF EXAM: 08/09/2020 COMPARISON: Chest x-ray 08/09/2020 HISTORY: Intubated TECHNIQUE: Single frontal view of the chest is obtained. FINDINGS: Endotracheal tube and NG tube are present and has been placed in the interval and are over lying appropriate positions. Distal tip of the NG tube not included on exam. Patient is again rotated . No evident pneumothorax or pleural effusion. Lung lines are low. Patient is post median sternotomy. There are overlying leads. Interstitium is increased. Cardiac mediastinal silhouette is stable accou nting for differences in technique. IMPRESSION: No evident complication status post intubation. Exam is somewhat more expiratory, is rot ated.
[2020-08-09] MEDS ORDERED: CHLORHEXIDINE GLUCONATE 15 ML CUP MUCOUS MEM SCH (21:00)
--- NOTE | 2020-08-12 09:01 | CDI ---
Documentation Clarification Form Date: 08/12/2020 08:34:08 AM From: Leona [facility] CCS, CCDS Admit Date: 08/07/2020 09:15:00 AM Patient Name: Morris Ribera Visit Number: [id number] Discharge Date: 08/09/2020 03:14:00 PM ATTENTION: The Clinical Documentation Specialists (CDI) and [facility] Coding Staff appreciate your assistance in clarifying documentation. Please respond to the clarification below the line at the bottom and electronically sign. The CDI & [facility] Coding staff will review the response and follow-up if needed. Please note: Queries are made part of the Legal Health Record. If you have any questions, please contact the author of this message via ITS. Dr. Serg Vizcaino: Per the 08/09 Discharge Summary: "70-year-old man with medical history of CAD/HTN/HLD presented with chest pain and was found to have STEMI with successful revascularization of the left circumflex. Patient did well 48 hours after the initial event, and was successfully (moved to) step down floor. Was on ASA/Statin/Plavix. No A Fib burden on telemetry. He then had an acute event while on the floor leading to flaccid paralysis and non-verbal status, though he tracked well, prompting stroke alert, which identified an occluded vessel in the left anterior cerebral artery on CTA, with possible MCA distribution density on CTH. Patient was evaluated via [id number], who recommended transfer to [facility] for further care. Patient was transferred to [facility] after intubation for airway protection." Patients Admitting Diagnosis per 08/07 History & Physical: STEMI, CAD status post CABG and PCI, Hypertension, Hyperlipidemia, Obesity, smoker 60 years 2ppd. Post-Operative Diagnosis (status post 08/07 Heart Catheterization and PTCA w/MAGGY stent of proximal circumflex): RCA: Dominant vessel, has a 30% to 40% narrowing distally bifurcates into PDA and PLV, both of which supply a fair amount of myocardium. LEFT MAIN: Short patent vessel free of significant disease. Bifurcates into LAD and circumflex. LAD: This vessel is totally occluded with a limited view of a diagonal branch. LEFT POSTERIOR CIRCUMFLEX: This vessel is totally occluded in the proximal portion, seen as a stump and this is the culprit vessel. LEFT INTERNAL MAMMARY ARTERY GRAFT TO LAD: This was performed after the intervention procedure. The HARMON is widely patent with good flow and the opacified LAD has minor diffuse irregularities, runs all the way to the apex. It also goes back and supplies a diagonal branch as well. SAPHENOUS VEIN GRAFT TO THE DIAGONAL BRANCH: This graft is widely patent at the origin and body and insertion site and the opacified diagonal is small in caliber, has mild diffuse disease but good flow. No significant disease in the vein graft to the diagonal. Procedure performed: Left Heart Catheterization and PCI with MAGGY stent to the Proximal Circumflex. History/Risk Factors: Hypertension, Hyperlipidemia and Obesity with BMI 33.2 Clinical Indicators: Presented as above, stable post heart cath & intervention until 08/09 per note above. Treatment 08/07: Nitro sl, IV Morphine, INH Pulmicort. 08/08: po Kayexalate, Aspirin, Plavix, Habitrol patch. 08/09: IV fluid 1,000 mls @ 20 mls/hr, IV Lasix, IV Solumedrol, IV Alteplase, IV Diprivan, Intubated, transferred to [facility]. In order to accurately reflect this patients severity of illness, please clarify if the patient's CVA status post Heart Catheterization and PCI: -is a complication of surgical procedure -is an expected outcome of the surgical procedure -is related to co-morbid condition(s) of (please specify): -Other please specify: -Unable to determine (Last Revision: August 2019) is related to co-morbid condition(s) of (please specify) CAD,SMOKING with COPD, PAD,Hyperchesterolemia with previous revascularization MTDD
== END 2020-08-09 15:14 | disposition short-term general hospital (02) | DRG 246 ==
LOC: EC 09:10 → 2SICU 09:15 → 3SCARD 08-09 12:06 → 2SICU 08-09 14:11
PROVIDERS: ADMIT Internal Medicine; ATTEND Internal Medicine
PROC: 4A023N7 Measurement of Cardiac Sampling and Pressure, Left Heart, Percutaneous Approach (ICD-10-PCS; principal; 2020-08-07 09:30)
PROC: 027034Z Dilation of Coronary Artery, One Artery with Drug-eluting Intraluminal Device, Percutaneous Approach (ICD-10-PCS; principal; 2020-08-07 09:30)
PROC: B2181ZZ Fluoroscopy of Left Internal Mammary Bypass Graft using Low Osmolar Contrast (ICD-10-PCS; principal; 2020-08-07 09:30)
PROC: B2111ZZ Fluoroscopy of Multiple Coronary Arteries using Low Osmolar Contrast (ICD-10-PCS; principal; 2020-08-07 09:30)
PROC: B2121ZZ Fluoroscopy of Single Coronary Artery Bypass Graft using Low Osmolar Contrast (ICD-10-PCS; principal; 2020-08-07 09:30)
PROC: 0BH17EZ Insertion of Endotracheal Airway into Trachea, Via Natural or Artificial Opening (ICD-10-PCS; 2020-08-09)
PROC: 0D9670Z Drainage of Stomach with Drainage Device, Via Natural or Artificial Opening (ICD-10-PCS; 2020-08-09)
PROC: 5A1935Z Respiratory Ventilation, Less than 24 Consecutive Hours (ICD-10-PCS; 2020-08-09)
PROC: 3E03317 Introduction of Other Thrombolytic into Peripheral Vein, Percutaneous Approach (ICD-10-PCS; 2020-08-09)
DX: I21.19 ST elevation (STEMI) myocardial infarction involving other coronary artery of inferior wall (principal); I63.422 Cerebral infarction due to embolism of left anterior cerebral artery; G81.04 Flaccid hemiplegia affecting left nondominant side; N17.9 Acute kidney failure, unspecified; J98.11 Atelectasis; N18.30 Chronic kidney disease, stage 3 unspecified; J44.9 Chronic obstructive pulmonary disease, unspecified; I73.9 Peripheral vascular disease, unspecified; R29.734 NIHSS score 34; E87.5 Hyperkalemia; I12.9 Hypertensive chronic kidney disease with stage 1 through stage 4 chronic kidney disease, or unspecified chronic kidney disease; I25.10 Atherosclerotic heart disease of native coronary artery without angina pectoris; I45.10 Unspecified right bundle-branch block; E78.5 Hyperlipidemia, unspecified; E78.00 Pure hypercholesterolemia, unspecified; E66.9 Obesity, unspecified; Z68.33 Body mass index [BMI] 33.0-33.9, adult; I25.2 Old myocardial infarction; T50.8X5A Adverse effect of diagnostic agents, initial encounter; F17.210 Nicotine dependence, cigarettes, uncomplicated; Z71.6 Tobacco abuse counseling; Z79.82 Long term (current) use of aspirin; Z79.51 Long term (current) use of inhaled steroids; Z79.899 Other long term (current) drug therapy; Z95.1 Presence of aortocoronary bypass graft; Z88.8 Allergy status to other drugs, medicaments and biological substances; Z83.3 Family history of diabetes mellitus
CPT/HCPCS: 70450; 70496; 70498; 71045; 80048; 80053; 83735; 84132; 84484; 85025; 85027; 85610; 85730; 93005; 93306; 93459; 94640; 99285